=== PATIENT | female | born 1985 | race Caucasian/White ===

== ENCOUNTER 2022-09-22 13:12 | Outpatient (CLI) | payer OTHER, SELFPAY | END 2022-09-22 13:13 | disposition home or self-care (01) | LOC: NFLDREF 13:12 | PROVIDERS: PCP Obstetrics & Gynecology; Visit Provider Obstetrics & Gynecology | DX: Z01.419 Encounter for gynecological examination (general) (routine) without abnormal findings (principal); Z13.6 Encounter for screening for cardiovascular disorders | CPT/HCPCS: 80061 ==

== ENCOUNTER 2023-09-28 13:05 | Outpatient (CLI) | payer BC, SELFPAY | END 2023-09-28 13:06 | disposition home or self-care (01) | PROVIDERS: Visit Provider Obstetrics & Gynecology | DX: Z01.419 Encounter for gynecological examination (general) (routine) without abnormal findings (principal); D64.9 Anemia, unspecified; Z13.29 Encounter for screening for other suspected endocrine disorder | CPT/HCPCS: 80048; 82728; 84443 ==

== ENCOUNTER 2023-11-13 13:15 | Outpatient (RCR) | payer BC, SELFPAY ==
--- NOTE | 2023-11-01 09:49 | URNOTE ---
?Request received for authorization for?Iron Sucrose (Venofer) ([id number]). Prior authorization is not required per coverage [place] [employer] [place] [place] Ref#[id number].
[2023-11-03 13:24] VITALS: BP 129/82; PULSE 95; RESP 16; TEMP 36.1; O2SAT 99
[2023-11-03] MEDS: SODIUM CHLORIDE 0.9 % (FLUSH) 10 ML SYRINGE IVF (13:30)
[2023-11-03] MEDS: 0.9 % SODIUM CHLORIDE 250 ml IV (13:30)
[2023-11-03] MEDS: IRON SUCROSE COMPLEX 200 MG in 0.9 % SODIUM CHLORIDE 100 ml 440 MG IVPB (13:42)
[2023-11-03 14:01] VITALS: BP 128/73; PULSE 95; RESP 18; TEMP 36.7; O2SAT 98
[2023-11-06 13:00] VITALS: BP 116/43; PULSE 77; RESP 16; TEMP 36.1; O2SAT 100
[2023-11-06] MEDS: 0.9 % SODIUM CHLORIDE 250 ml IV (13:17)
[2023-11-06] MEDS: SODIUM CHLORIDE 0.9 % (FLUSH) 10 ML SYRINGE IVF (13:17)
[2023-11-06] MEDS: IRON SUCROSE COMPLEX 200 MG in 0.9 % SODIUM CHLORIDE 100 ml 440 MG IVPB (13:17)
[2023-11-06 14:10] VITALS: BP 110/70; PULSE 60; RESP 14; TEMP 36.1; O2SAT 100
[2023-11-08 11:26] VITALS: BP 104/67; PULSE 76; RESP 16; TEMP 36.1; O2SAT 100
[2023-11-08] MEDS: IRON SUCROSE COMPLEX 200 MG in 0.9 % SODIUM CHLORIDE 100 ml 440 MG IVPB (11:52)
[2023-11-08] MEDS: 0.9 % SODIUM CHLORIDE 250 ml IV (11:53)
[2023-11-08] MEDS: SODIUM CHLORIDE 0.9 % (FLUSH) 10 ML SYRINGE IVF (11:53)
[2023-11-08 12:45] VITALS: BP 109/72; PULSE 61; RESP 14; TEMP 36.1; O2SAT 100
[2023-11-10 09:19] VITALS: BP 108/74; PULSE 71; RESP 16; TEMP 36.7; O2SAT 99
[2023-11-10] MEDS: IRON SUCROSE COMPLEX 200 MG in 0.9 % SODIUM CHLORIDE 100 ml 440 MG IVPB (09:48)
[2023-11-10] MEDS: SODIUM CHLORIDE 0.9 % (FLUSH) 10 ML SYRINGE IVF (09:48)
[2023-11-10] MEDS: 0.9 % SODIUM CHLORIDE 250 ml IV (09:48)
[2023-11-10 10:10] VITALS: BP 102/57; PULSE 76; RESP 16; TEMP 36.6; O2SAT 99
[2023-11-10 10:37] VITALS: BP 115/80; PULSE 58; RESP 16; TEMP 36.5; O2SAT 100
[2023-11-13 13:26] VITALS: BP 114/73; PULSE 77; RESP 16; TEMP 36.5; O2SAT 98
[2023-11-13] MEDS: 0.9 % SODIUM CHLORIDE 250 ml IV (13:58)
[2023-11-13] MEDS: IRON SUCROSE COMPLEX 200 MG in 0.9 % SODIUM CHLORIDE 100 ml 440 MG IVPB (13:58)
[2023-11-13] MEDS: SODIUM CHLORIDE 0.9 % (FLUSH) 10 ML SYRINGE IVF (13:59)
[2023-11-13 14:50] VITALS: BP 115/77; PULSE 63; RESP 16; TEMP 35.8; O2SAT 97
== END 2024-05-01 23:59 | disposition home or self-care (01) ==
LOC: CCIC 13:15
PROVIDERS: Visit Provider Clinical Nurse Specialist
DX: D50.9 Iron deficiency anemia, unspecified (principal)
CPT/HCPCS: 96365; 96374; J1756; J7050

== ENCOUNTER 2023-12-22 09:51 | Outpatient (CLI) | payer BC, SELFPAY ==
--- NOTE | 2023-12-22 10:15 | CRLHL7_ITS ---
For Patients: As a result of the Century Cures Act, medical imaging exams and procedure reports are released immediately into your electronic medical record. You may view this report before your referring provider. If you have questions, please contact your health care provider. BILATERAL SCREENING MAMMOGRAM WITH COMPUTER-AIDED DETECTION AND TOMOSYNTHESIS TECHNIQUE: CC and MLO views were obtained. These mammographic images have been obtained using full-field digital technique. These mammographic images were interpreted with the benefit of computer-aided detection. Breast Tomosynthesis was used in this interpretation. COMPARISON FILM: Baseline. FINDINGS: There are scattered areas of fibroglandular density. IMPRESSION: There is no radiographic evidence for malignancy. ASSESSMENT: BI-RADS Category 1: Negative RECOMMENDATION: Routine screening mammogram in 1 year. A lay language report of this examination will be provided to the patient. James Peñaloza M.D. Diagnostic Radiologist [email or web address] SP/Dictated by: James Peñaloza MD @ 12/25/2023 12:57:00 PM (Electronically Signed)
== END 2023-12-22 09:52 | disposition home or self-care (01) ==
LOC: MAMMO 09:52
PROVIDERS: Visit Provider Obstetrics & Gynecology
DX: Z12.31 Encounter for screening mammogram for malignant neoplasm of breast (principal)
CPT/HCPCS: 77063; 77067